=== PATIENT | female | born 1980 | race Asian ===

== ENCOUNTER 2019-06-12 22:50 | Inpatient (IN) | payer OTHER ==
[~2019-06-12] VITALS: Ht 165.1 cm; Wt 45.4 kg
[2019-06-12 23:00] VITALS: BP 130/80
--- NOTE | 2019-06-12 23:00 | NUR ---
ED Nurse Note: Pt brought in by [facility] for c/o substance abuse. Per pt, she was at a rehab facility due to hx of cocaine and heroin use for two years and she left the facility earlier today and went home. While at home, she drank an entire bottle of nyquil to feel better from symptoms of n/v, diarrhea and generalized body aches and pt mother called 911. Pt denies wanting to harm herself or others. Pt states she feels like she is withdrawling which are similar symptoms to the past time. Pt missed methadone dose this morning. Pt is aaox4, appears anxious, breathing is normal and unlabored.
[2019-06-12 23:34] LABS: BASOPHILS % (AUTO) 0.4 % (0.0-2.0); HEMATOCRIT 40.3 % (37.0-47.0); LYMPHOCYTES % (AUTO) 9.2 % (20.0-45.0); MEAN CORPUSCULAR VOLUME 85 FL (80-99); MONOCYTES % (AUTO) 7.9 % (1.0-10.0); NEUTROPHILS % (AUTO) 82.5 % (45.0-75.0); PLATELET COUNT 304 K/UL (150-450); RED BLOOD COUNT 4.76 M/UL (4.20-5.40); RED CELL DISTRIBUTION WIDTH 11.9 % (11.6-14.8); WHITE BLOOD COUNT 6.4 K/UL (4.8-10.8)
[2019-06-12 23:36] LABS: APPEARANCE,URINE CLEAR; BILIRUBIN, URINE NEGATIVE (NEGATIVE); COLOR,URINE PALE YELLOW; GLUCOSE, URINE (UA) NEGATIVE (NEGATIVE); KETONES,URINE 1+ (NEGATIVE); LEUKOCYTE ESTERASE ,URINE 1+ (NEGATIVE); NITRITE,URINE NEGATIVE (NEGATIVE); PH,URINE 5 (4.5-8.0); PROTEIN,URINE 1+ (NEGATIVE); UROBILINOGEN,URINE NORMAL MG/DL (0.0-1.0)
[2019-06-12 23:44] LABS: ANION GAP 16 mmol/L (5-15); BLOOD UREA NITROGEN 11 mg/dL (7-18); CALCIUM 9.2 MG/DL (8.5-10.1); CARBON DIOXIDE 23 MMOL/L (21-32); CHLORIDE 106 MMOL/L (98-107); CREATININE 0.7 MG/DL (0.55-1.30); POTASSIUM 3.2 MMOL/L (3.5-5.1); SODIUM 144 MMOL/L (136-145)
[2019-06-12] MEDS ORDERED: Ketorolac 30mg Inj IV ONE (23:45)
--- NOTE | 2019-06-12 23:46 | Emergency Room Report ---
History of Present Illness General Chief Complaint: Substance Abuse Source: Patient Present Illness HPI Disclaimer: Please note that this report is being documented using DRAGON technology. This can lead to erroneous entry secondary to incorrect interpretation by the dictating instrument. HPI: 39-year-old female with a history of cocaine and opiate abuse presents for evaluation of body wide pain and withdrawal symptoms. She was at a [facility] trying to get off of opiates and methadone. She was on a taper. She signed out and returned home today because she was not satisfied with the care she was getting. She was complaining of diffuse body wide pains, diarrhea, nausea and vomiting. Denies fever, chest pain, back pain. She believes she is withdrawing as she has done in the past. She drank a bottle of NyQuil to try to help her sleep. She denies it being a suicidal attempt at all but just looking for relief from pain and to help with sleep. She states that he did not drink it all at once but rather over the course of a few hours. Started drinking 6 PM and finished approximately 10 PM. She would like to return to a rehab facility. PMH: Cocaine, opiate abuse PSH: Reviewed Allergies: Iodine Social Hx: Substance abuse COVID-19 risk:Travel to affect: No Has patient experienced cota: No Allergies: Uncoded Allergies: IOODINE (Allergy, Unknown, 06/12/19) Patient History Last Menstrual Period: na Now: No Nursing Documentation-PMH Past Medical History: No History, Except For Review of Systems All Other Systems: negative except mentioned in HPI Physical Exam Vital Signs Date Time Temp Pulse Resp B/P (MAP) Pulse Ox O2 Delivery O2 Flow Rate FiO2 06/12/19 22:52 98.4 90 18 130/80 (97) 98 General: Awake and alert, no acute distress HEENT: NC/AT. EOMI. Cardiovascular: RRR. S1 and S2 normal. No murmur appreciated Resp: Normal work of breathing. No cough, wheezing or crackles appreciated Abdomen: Abdomen is soft, nondistended. Nontender Skin: Intact. No abrasions, laceration or rash over the exposed skin MSK: Normal tone and bulk. Moving all extremities. No obvious deformity. Neuro: Awake and alert. Mentating appropriately. No tremors. Procedures Critical Care Time Critical Care Time Total critical care time: Approximately 31 minutes Due to a high probability of clinically significant, life threatening deterioration, the patient required the highest level of preparedness to intervene emergently and I personally spent this critical care time directly and personally managing the patient. This critical care time included obtaining a history, examining the patient, pulse oximetry, ordering and reviewing studies , ordering treatments, evaluating response to treatment and updating management plan as needed, frequent reassessment and discussion with other providers as well as arranging for ultimate disposition. This critical to care time was performed to assess and manage the high probability of life-threatening deterioration that could result in multiorgan failure. This critical care time is separate from the separately billable procedures and treating other patients. Medical Decision Making Diagnostic Impression: Primary Impression: Withdrawal syndrome Additional Impression: Acetaminophen overdose ER Course 39-year-old female history of opiate and cocaine abuse presents for evaluation of body wide pain, vomiting and diarrhea consistent with acute opiate/methadone withdrawal. While she did drink a bottle of NyQuil she states it was to help her sleep and adamantly denies SI. She is requesting to return to a facility and symptomatic medications to help with her withdrawal symptoms. Concern for acetaminophen overdose and dextromethorphan overdose at this time is greatest given her ingestion of NyQuil although it was over a period of approximately 4 hours the last of which was approximately 1 hour prior to arrival. We will obtain EKG to assess QRS, draw labs to assess for other coingestants, electrolyte abnormalities in preparation for transfer to facility if one is willing to accept her. Will start IV fluids, loperamide, Zofran and Toradol. Laboratory Tests Test 06/12/19 23:10 06/12/19 23:15 White Blood Count 6.4 K/UL (4.8-10.8) Red Blood Count 4.76 M/UL (4.20-5.40) Hemoglobin 14.0 G/DL (12.0-16.0) Hematocrit 40.3 % (37.0-47.0) Mean Corpuscular Volume 85 FL (80-99) Mean Corpuscular Hemoglobin 29.4 PG (27.0-31.0) Mean Corpuscular Hemoglobin Concent 34.7 G/DL (32.0-36.0) Red Cell Distribution Width 11.9 % (11.6-14.8) Platelet Count 304 K/UL (150-450) Mean Platelet Volume 6.4 FL (6.5-10.1) L Neutrophils (%) (Auto) 82.5 % (45.0-75.0) H Lymphocytes (%) (Auto) 9.2 % (20.0-45.0) L Monocytes (%) (Auto) 7.9 % (1.0-10.0) Eosinophils (%) (Auto) 0.0 % (0.0-3.0) Basophils (%) (Auto) 0.4 % (0.0-2.0) Sodium Level 144 MMOL/L (136-145) Potassium Level 3.2 MMOL/L (3.5-5.1) L Chloride Level 106 MMOL/L (98-107) Carbon Dioxide Level 23 MMOL/L (21-32) Anion Gap 16 mmol/L (5-15) H Blood Urea Nitrogen 11 mg/dL (7-18) Creatinine 0.7 MG/DL (0.55-1.30) Estimate Glomerular Filtration Rate > 60 mL/min (>60) Glucose Level 89 MG/DL (74-106) Calcium Level 9.2 MG/DL (8.5-10.1) Total Bilirubin 0.3 MG/DL (0.2-1.0) Aspartate Amino Transferase (AST) 15 U/L (15-37) Alanine Aminotransferase (ALT) 15 U/L (12-78) Alkaline Phosphatase 72 U/L (46-116) Total Protein 8.0 G/DL (6.4-8.2) Albumin 4.3 G/DL (3.4-5.0) Globulin 3.7 g/dL Albumin/Globulin Ratio 1.2 (1.0-2.7) Salicylates Level 1.9 ug/mL (2.8-20) L Acetaminophen Level 131 MCG/ML (10-30) H Serum Alcohol < 3 mg/dL Urine Color Pale yellow Urine Appearance Clear Urine pH 5 (4.5-8.0) Urine Specific [place] 1.015 (1.005-1.035) Urine Protein 1+ (NEGATIVE) H Urine Glucose (UA) Negative (NEGATIVE) Urine Ketones 1+ (NEGATIVE) H Urine Blood 2+ (NEGATIVE) H Urine Nitrite Negative (NEGATIVE) Urine Bilirubin Negative (NEGATIVE) Urine Urobilinogen Normal MG/DL (0.0-1.0) Urine Leukocyte Esterase 1+ (NEGATIVE) H Urine RBC 0-2 /HPF (0 - 2) Urine WBC 0-2 /HPF (0 - 2) Urine Squamous Epithelial Cells Few /LPF (NONE/OCC) Urine Bacteria Few /HPF (NONE) Urine HCG, Qualitative Negative (NEGATIVE) Urine Opiates Screen Negative (NEGATIVE) Urine Barbiturates Screen Negative (NEGATIVE) Phencyclidine (PCP) Screen Positive (NEGATIVE) H Urine Amphetamines Screen Negative (NEGATIVE) Urine Benzodiazepines Screen Negative (NEGATIVE) Urine Cocaine Screen Negative (NEGATIVE) Urine Marijuana (THC) Screen Negative (NEGATIVE) EKG Diagnostic Results EKG Time: 00:11 Rate: bradycardiac Rhythm: NSR ST Segments: no acute changes Other Impression Sinus bradycardia, normal axis, normal intervals, QRS [address] segment changes Rhythm Strip Diag. Results Rhythm Strip Time: 00:11 EP Interpretation: yes Rate: 50s Rhythm: NSR, no PVC's, no ectopy Reevaluation Time: 00:31 Last Vital Signs Date Time Temp Pulse Resp B/P (MAP) Pulse Ox O2 Delivery O2 Flow Rate FiO2 06/12/19 22:52 98.4 90 18 130/80 (97) 98 Reevaluation Impression QRS is within normal limits. EKG otherwise unremarkable aside from sinus bradycardia. Labs show elevated acetaminophen level at 131 and she is also positive for PCP. She was ingesting the NyQuil between 6 PM and 10 PM. Labs otherwise within normal limits. Liver function studies unremarkable. Discussed with poison control. They are recommending administration of NAC. Will give initial dose in the ED. She will be admitted for further management of acute Tylenol ingestion/overdose and monitoring. She is again denying suicidality. Disposition: ADMITTED INPATIENT Condition: Serious Elpidio Antonio MD Jun 12, 2019 23:46
[2019-06-12 23:48] LABS: ALANINE AMINOTRANSFERASE 15 U/L (12-78); ALBUMIN 4.3 G/DL (3.4-5.0); ALBUMIN/GLOBULIN RATIO 1.2 (1.0-2.7); ALKALINE PHOSPHATASE 72 U/L (46-116); ASPARTATE AMINO TRANSFERASE 15 U/L (15-37); BILIRUBIN,TOTAL 0.3 MG/DL (0.2-1.0)
--- NOTE | 2019-06-13 00:15 | NUR ---
HAND-OFF: Report given to Alcira RN and pt placed in bed and on color television console monitor.
--- NOTE | 2019-06-13 00:17 | NUR ---
ED Nurse Note: Received report from AMANDA Rowland. Patient placed on home office claims examiner. No acute distress noted.
--- NOTE | 2019-06-13 00:17 | NUR ---
Note samantha in EDM - 06/13/19 at 0142 by BRANDYN TRANSFER TO FLOOR: Patient transferred to med surg as ordered, per ERMD. Report given to AMANDA Hill. Patient transported via gurney with 1 marketing technology coordinator in stable condition.
[2019-06-13] MEDS ORDERED: D5W IV ONE (01:00)
[2019-06-13] MEDS ORDERED: ACETADOTE IV ONE (01:00)
--- NOTE | 2019-06-13 01:20 | NUR ---
ED Nurse Note: Report given to AMANDA Hill.
[2019-06-13] MEDS ORDERED: Ketorolac 30mg Inj IM PRN (01:30)
--- NOTE | 2019-06-13 01:35 | NUR ---
TRANSFER TO FLOOR: Patient transferred to med surg as ordered, per ERMD. Report given to AMANDA Hill. Patient transported via gurney with 1 weatherization technician in stable condition.
--- NOTE | 2019-06-13 01:50 | NUR ---
NURSE NOTES: Pt. received from AMANDA Rowland. Pt. AAOx4, on room air, VS stable, breathing is even and unlabored, complaints of abdominal pain; will follow with interventions. Pt. complains of nausea, no vomiting at this time. IV access right AC 20g asymptomatic, intact, patent; saline locked. Pt. oriented to room, educated on safety and use of call light, belongings list checked and signed. Bed is low and locked, side rails x2 up, and call light is in reach. Will call MD for admission orders.
--- NOTE | 2019-06-13 02:05 | NUR ---
NURSE NOTES: Messaged left for Dr. Arvizu regarding admission orders, awaiting return call.
--- NOTE | 2019-06-13 03:05 | NUR ---
NURSE NOTES: Message left for Dr. Arvizu regarding admission orders, awaiting return call.
--- NOTE | 2019-06-13 03:45 | NUR ---
NURSE NOTES: Spoke with Hanna from Poison Control ( , case# [id number]). Hanna advised to continue to monitor for symptoms and to continue mucomyst series (4hr bag and 16hr bag), advised to reassess labs for tylenol level, liver enzymes, and INR one hour before the 16hr bag has finished running. Per Hanna, goal is for tylenol level <10, normal liver enzymes. Hanna advised to call regarding any other questions.
--- NOTE | 2019-06-13 03:50 | NUR ---
NURSE NOTES: Message left for Dr. Arvizu regarding admission orders and follow up from poison control. Awaiting return call.
[2019-06-13] MEDS ORDERED: xanax (03:56)
[2019-06-13] MEDS ORDERED: buspirone (03:56)
[2019-06-13] MEDS ORDERED: gabapentin (03:56)
[2019-06-13] MEDS ORDERED: methadone (03:56)
[2019-06-13] MEDS ORDERED: venlafaxine (03:56)
[2019-06-13 04:00] VITALS: BP 146/73
--- NOTE | 2019-06-13 05:00 | NUR ---
NURSE NOTES: Awaiting admission orders, charge nurse aware and nursing supervisor cigar making hand aware.
--- NOTE | 2019-06-13 05:30 | NUR ---
NURSE NOTES: Attempted to get in touch with [facility] to request medication information. Pt. able to state medication receiving while at [facility] but unable to recall dose and frequency. Unable to connect with anyone at [facility] at this time.
--- NOTE | 2019-06-13 06:23 | NUR ---
NURSE NOTES: Message left for Dr. Arvizu, awaiting return call.
--- NOTE | 2019-06-13 06:59 | NUR ---
NURSE NOTES: Spoke with Dr. Thornton regarding admission orders, Dr. Thornton said he will be up shortly to visit the patient. Will continue to monitor. Charge nurse is aware.
[2019-06-13] MEDS ORDERED: chlordiazePOXIDE 5mg Cap ORAL PRN (07:00)
[2019-06-13] MEDS ORDERED: Zolpidem 5mg tab ORAL PRN (07:00)
[2019-06-13] MEDS ORDERED: D5 1/2NS w/KCl 30mEq 1000ml 1,000 ML IV SCH (07:30)
--- NOTE | 2019-06-13 07:35 | NUR ---
NURSE NOTES: Received report from AMANDA Hill. Patient in bed sleeping. On room air, no signs of distress or labored breathing. IV intact, patent, and saline locked. Bed in lowest position with call light in reach. Will continue with plan of care.
--- NOTE | 2019-06-13 07:45 | NUR ---
NURSE NOTES: Spoke with Tommy at poison control regarding mucomyst, Tommy recommended to restart the series for the pt due to too long of a time between the initial loading dose. Will follow up with Dr. Arvizu.
--- NOTE | 2019-06-13 07:45 | NUR ---
HAND-OFF: Report given to AMANDA Yates.
--- NOTE | 2019-06-13 07:50 | NUR ---
NURSE NOTES: Dr. Arvizu called regarding consult from poison control to restart mucomyst series. Awaiting return call, endorsed to day shift nurse.
[2019-06-13 08:00] VITALS: BP 148/95
--- NOTE | 2019-06-13 08:00 | NUR ---
NURSE NOTES: Notified Dr. Arvizu of poison control recommendations. No orders given.
[2019-06-13] MEDS: Heparin 5000 units/ml inj SUBQ SCH ×2 (09:00→21:00)
[2019-06-13 09:23] LABS: BASOPHILS % (AUTO) 0.6 % (0.0-2.0); EOSINOPHILS % (AUTO) 0.1 % (0.0-3.0); HEMATOCRIT 40.6 % (37.0-47.0); HEMOGLOBIN 13.5 G/DL (12.0-16.0); LYMPHOCYTES % (AUTO) 26.2 % (20.0-45.0); MEAN CORPUSCULAR VOLUME 86 FL (80-99); MONOCYTES % (AUTO) 5.3 % (1.0-10.0); NEUTROPHILS % (AUTO) 67.8 % (45.0-75.0); PLATELET COUNT 305 K/UL (150-450); RED BLOOD COUNT 4.71 M/UL (4.20-5.40); RED CELL DISTRIBUTION WIDTH 12.1 % (11.6-14.8); WHITE BLOOD COUNT 7.1 K/UL (4.8-10.8)
[2019-06-13] MEDS ORDERED: D5 1/2NS w/KCl 20mEq 1,000 ML IV SCH (09:30)
[2019-06-13 10:00] LABS: ANION GAP 11 mmol/L (5-15); BLOOD UREA NITROGEN 7 mg/dL (7-18); CALCIUM 9.1 MG/DL (8.5-10.1); CARBON DIOXIDE 26 MMOL/L (21-32); CHLORIDE 107 MMOL/L (98-107); CREATININE 0.7 MG/DL (0.55-1.30); PHOSPHORUS 3.4 MG/DL (2.5-4.9); POTASSIUM 4.2 MMOL/L (3.5-5.1); SODIUM 144 MMOL/L (136-145)
--- NOTE | 2019-06-13 10:18 | NUR ---
COMPONENT OVERHAUL OPERATOR NOTE SW received a notification for social insurance specialist concerns. SW met w/ pt and assessed pt's needs/concerns. Pt presents as A&O4x. Pt resides w/ her mother at [address] [place] [address]. Pt is and has no children. Emergency contacts provided : Hali Santiago(sister) [phone] and Valentino Ferguson (mother) [phone]. Pt uses tobacco, no ETOH, and abuses cocaine, heroine and methadone. Pt receives methadone tx at [facility] every day. Pt's last methadone tx was 2 days ago. Per pt, her last substance abuse was two weeks ago. RUDS positive for PCP. Pt was participating IP substance abuse rehab program at [facility] in [place]. However, pt states she left the program before completing one. Pt currently considers IP vs OP substance abuse rehab program. SW provided the list of substance rehab programs in [facility]. SW highly encouraged pt to F/U w/ her current interest in rehab. Pt verbalized understanding. Pt denies SI/HI. Pt did not share any further concern/needs. SW to F/U as needed. Signed: 06/13/19 at 1025 by VANESSA HENNING <Co-Signature Required>
--- NOTE | 2019-06-13 11:42 | General Progress Note ---
Assessment/Plan Problem List: (1) Withdrawal syndrome ICD Codes: F19.239 - Other psychoactive substance dependence with withdrawal, unspecified SNOMED: [id number] Assessment/Plan: opioid dependency/WD no elevated LFTS needs pain management consult ivf repeat labs in am very anxious needs psych eval Subjective ROS Limited/Unobtainable: Yes Allergies: Uncoded Allergies: IOODINE (Allergy, Unknown, 06/12/19) Subjective HPI: 39-year-old female with a history of cocaine and opiate abuse presents for evaluation of body wide pain and withdrawal symptoms. She was at a [facility] trying to get off of opiates and methadone. She was on a taper. She signed out and returned home today because she was not satisfied with the care she was getting. She was complaining of diffuse body wide pains, diarrhea, nausea and vomiting. Denies fever, chest pain, back pain. She believes she is withdrawing as she has done in the past. She drank a bottle of NyQuil to try to help her sleep. She denies it being a suicidal attempt at all but just looking for relief from pain and to help with sleep. She states that he did not drink it all at once but rather over the course of a few hour Objective Last 24 Hour Vital Signs Date Time Temp Pulse Resp B/P (MAP) Pulse Ox O2 Delivery O2 Flow Rate FiO2 06/13/19 04:00 98.3 55 18 146/73 (97) 99 06/13/19 02:13 Room Air 06/13/19 01:35 98.3 89 18 139/95 99 Room Air 06/13/19 00:25 98.4 06/12/19 23:00 90 18 Room Air 06/12/19 23:00 98.4 90 18 130/80 98 06/12/19 22:52 98.4 90 18 130/80 (97) 98 Intake and Output 06/12/19 06/13/19 19:00 07:00 Intake Total 1000 ml Balance 1000 ml Intake Oral 0 ml IV Total 1000 ml Laboratory Tests 06/12/19 23:10: White Blood Count 6.4, Red Blood Count 4.76, Hemoglobin 14.0, Hematocrit 40.3, Mean Corpuscular Volume 85, Mean Corpuscular Hemoglobin 29.4, Mean Corpuscular Hemoglobin Concent 34.7, Red Cell Distribution Width 11.9, Platelet Count 304, Mean Platelet Volume 6.4L, Neutrophils (%) (Auto) 82.5H, Lymphocytes (%) (Auto) 9.2L, Monocytes (%) (Auto) 7.9, Eosinophils (%) (Auto) 0.0, Basophils (%) (Auto ) 0.4, Sodium Level 144, Potassium Level 3.2L, Chloride Level 106, Carbon Dioxide Level 23, Anion Gap 16H, Blood Urea Nitrogen 11, Creatinine 0.7, Estimat Glomerular Filtration Rate > 60, Glucose Level 89, Calcium Level 9.2, Total Bilirubin 0.3, Aspartate Amino Transf (AST/SGOT) 15, Alanine Aminotransferase (ALT/SGPT) 15, Alkaline Phosphatase 72, Total Protein 8.0, Albumin 4.3, Globulin 3.7, Albumin/Globulin Ratio 1.2, Salicylates Level 1.9L, Acetaminophen Level 131H, Serum Alcohol < 3 06/12/19 23:15: Urine Color Pale yellow, Urine Appearance Clear, Urine pH 5, Urine Specific [place] 1.015, Urine Protein 1+H, Urine Glucose (UA) Negative, Urine Ketones 1+H , Urine Blood 2+H, Urine Nitrite Negative, Urine Bilirubin Negative, Urine Urobilinogen Normal, Urine Leukocyte Esterase 1+H, Urine RBC 0-2, Urine WBC 0-2 , Urine Squamous Epithelial Cells Few, Urine Bacteria Few, Urine HCG, Qualitative Negative, Urine Opiates Screen Negative, Urine Barbiturates Screen Negative, Phencyclidine (PCP) Screen PositiveH, Urine Amphetamines Screen Negative, Urine Benzodiazepines Screen Negative, Urine Cocaine Screen Negative, Urine Marijuana (THC) Screen Negative 06/13/19 08:45: White Blood Count 7.1, Red Blood Count 4.71, Hemoglobin 13.5, Hematocrit 40.6, Mean Corpuscular Volume 86, Mean Corpuscular Hemoglobin 28.8, Mean Corpuscular Hemoglobin Concent 33.3, Red Cell Distribution Width 12.1, Platelet Count 305, Mean Platelet Volume 6.3L, Neutrophils (%) (Auto) 67.8, Lymphocytes (%) (Auto) 26.2, Monocytes (%) (Auto) 5.3, Eosinophils (%) (Auto) 0.1, Basophils (%) (Auto ) 0.6, Sodium Level 144, Potassium Level 4.2, Chloride Level 107, Carbon Dioxide Level 26, Anion Gap 11, Blood Urea Nitrogen 7, Creatinine 0.7, Estimat Glomerular Filtration Rate > 60, Glucose Level 103, Calcium Level 9.1, Acetaminophen Level 11, Prothrombin Time 10.7, Prothromb Time International Ratio 1.0, Phosphorus Level 3.4, Magnesium Level 2.0 Height (Feet): 5 Height (Inches): 5.00 Weight (Pounds): 100 General Appearance: alert EENT: normal ENT inspection Neck: supple Cardiovascular: normal rate Respiratory/Chest: decreased breath sounds Abdomen: normal bowel sounds, non tender, soft Extremities: non-tender Kurt Montoya MD Jun 13, 2019 11:42
[2019-06-13 12:00] VITALS: BP 127/82
[2019-06-13] MEDS ORDERED: Morphine Sulfate 4mg/ml Inj (IV USE ONLY) IVP PRN (12:30)
--- NOTE | 2019-06-13 12:53 | Consultation ---
History of Present Illness General Date patient seen: Jun 13, 2019 Chief Complaint: Present Illness Allergies: Uncoded Allergies: IOODINE (Allergy, Unknown, 06/12/19) Medication History Miscellaneous Medications [buspirone], (Reported) [gabapentin], (Reported) [methadone], (Reported) [venlafaxine], (Reported) [xanax], (Reported) Patient History Healthcare decision maker Resuscitation status Full Code Advanced Directive on File Physical Exam Last 24 Hour Vital Signs Date Time Temp Pulse Resp B/P (MAP) Pulse Ox O2 Delivery O2 Flow Rate FiO2 06/13/19 04:00 98.3 55 18 146/73 (97) 99 06/13/19 02:13 Room Air 06/13/19 01:35 98.3 89 18 139/95 99 Room Air 06/13/19 00:25 98.4 06/12/19 23:00 90 18 Room Air 06/12/19 23:00 98.4 90 18 130/80 98 06/12/19 22:52 98.4 90 18 130/80 (97) 98 Intake and Output 06/12/19 06/13/19 19:00 07:00 Intake Total 1000 ml Balance 1000 ml Intake Oral 0 ml IV Total 1000 ml Laboratory Tests Test 06/12/19 23:10 06/12/19 23:15 06/13/19 08:45 White Blood Count 6.4 K/UL (4.8-10.8) 7.1 K/UL (4.8-10.8) Red Blood Count 4.76 M/UL (4.20-5.40) 4.71 M/UL (4.20-5.40) Hemoglobin 14.0 G/DL (12.0-16.0) 13.5 G/DL (12.0-16.0) Hematocrit 40.3 % (37.0-47.0) 40.6 % (37.0-47.0) Mean Corpuscular Volume 85 FL (80-99) 86 FL (80-99) Mean Corpuscular Hemoglobin 29.4 PG (27.0-31.0) 28.8 PG (27.0-31.0) Mean Corpuscular Hemoglobin Concent 34.7 G/DL (32.0-36.0) 33.3 G/DL (32.0-36.0) Red Cell Distribution Width 11.9 % (11.6-14.8) 12.1 % (11.6-14.8) Platelet Count 304 K/UL (150-450) 305 K/UL (150-450) Mean Platelet Volume 6.4 FL (6.5-10.1) L 6.3 FL (6.5-10.1) L Neutrophils (%) (Auto) 82.5 % (45.0-75.0) H 67.8 % (45.0-75.0) Lymphocytes (%) (Auto) 9.2 % (20.0-45.0) L 26.2 % (20.0-45.0) Monocytes (%) (Auto) 7.9 % (1.0-10.0) 5.3 % (1.0-10.0) Eosinophils (%) (Auto) 0.0 % (0.0-3.0) 0.1 % (0.0-3.0) Basophils (%) (Auto) 0.4 % (0.0-2.0) 0.6 % (0.0-2.0) Sodium Level 144 MMOL/L (136-145) 144 MMOL/L (136-145) Potassium Level 3.2 MMOL/L (3.5-5.1) L 4.2 MMOL/L (3.5-5.1) Chloride Level 106 MMOL/L (98-107) 107 MMOL/L (98-107) Carbon Dioxide Level 23 MMOL/L (21-32) 26 MMOL/L (21-32) Anion Gap 16 mmol/L (5-15) H 11 mmol/L (5-15) Blood Urea Nitrogen 11 mg/dL (7-18) 7 mg/dL (7-18) Creatinine 0.7 MG/DL (0.55-1.30) 0.7 MG/DL (0.55-1.30) Estimat Glomerular Filtration Rate > 60 mL/min (>60) > 60 mL/min (>60) Glucose Level 89 MG/DL (74-106) 103 MG/DL (74-106) Calcium Level 9.2 MG/DL (8.5-10.1) 9.1 MG/DL (8.5-10.1) Total Bilirubin 0.3 MG/DL (0.2-1.0) Aspartate Amino Transf (AST/SGOT) 15 U/L (15-37) Alanine Aminotransferase (ALT/SGPT) 15 U/L (12-78) Alkaline Phosphatase 72 U/L (46-116) Total Protein 8.0 G/DL (6.4-8.2) Albumin 4.3 G/DL (3.4-5.0) Globulin 3.7 g/dL Albumin/Globulin Ratio 1.2 (1.0-2.7) Salicylates Level 1.9 ug/mL (2.8-20) L Acetaminophen Level 131 MCG/ML (10-30) H 11 MCG/ML (10-30) Serum Alcohol < 3 mg/dL Urine Color Pale yellow Urine Appearance Clear Urine pH 5 (4.5-8.0) Urine Specific [place] 1.015 (1.005-1.035) Urine Protein 1+ (NEGATIVE) H Urine Glucose (UA) Negative (NEGATIVE) Urine Ketones 1+ (NEGATIVE) H Urine Blood 2+ (NEGATIVE) H Urine Nitrite Negative (NEGATIVE) Urine Bilirubin Negative (NEGATIVE) Urine Urobilinogen Normal MG/DL (0.0-1.0) Urine Leukocyte Esterase 1+ (NEGATIVE) H Urine RBC 0-2 /HPF (0 - 2) Urine WBC 0-2 /HPF (0 - 2) Urine Squamous Epithelial Cells Few /LPF (NONE/OCC) Urine Bacteria Few /HPF (NONE) Urine HCG, Qualitative Negative (NEGATIVE) Urine Opiates Screen Negative (NEGATIVE) Urine Barbiturates Screen Negative (NEGATIVE) Phencyclidine (PCP) Screen Positive (NEGATIVE) H Urine Amphetamines Screen Negative (NEGATIVE) Urine Benzodiazepines Screen Negative (NEGATIVE) Urine Cocaine Screen Negative (NEGATIVE) Urine Marijuana (THC) Screen Negative (NEGATIVE) Prothrombin Time 10.7 SEC (9.30-11.50) Prothromb Time International Ratio 1.0 (0.9-1.1) Phosphorus Level 3.4 MG/DL (2.5-4.9) Magnesium Level 2.0 MG/DL (1.8-2.4) Height (Feet): 5 Height (Inches): 5.00 Weight (Pounds): 100 Medications Current Medications Medications (Trade) Dose Ordered Sig/David Route PRN Reason Start Time Stop Time Status Last Admin Dose Admin Bisacodyl (Dulcolax) 10 mg DAILYPRN PRN RECTAL Constipation 06/13/19 07:15 07/13/19 07:14 Chlordiazepoxide (Librium) 25 mg Q6H PRN ORAL withdrawl 06/13/19 07:00 06/20/19 06:59 Dextrose/ Electrolytes 1,000 ml @ 50 mls/hr Q20H IV 06/13/19 14:00 07/13/19 13:59 Heparin Sodium (Porcine) (Heparin 5000 units/ml) 5,000 units EVERY 12 HOURS SUBQ 06/13/19 09:00 07/28/19 08:59 Ketorolac Tromethamine (Toradol 30mg) 30 mg Q6H PRN IM pain 06/13/19 01:30 06/18/19 01:29 06/13/19 06:49 Loperamide HCl (Imodium) 4 mg Q6HR PRN ORAL Diarrhea 06/13/19 01:00 07/13/19 00:59 Methadone HCl (Methadone HCl) 20 mg Q4H PRN ORAL For Pain 06/13/19 15:15 06/20/19 07:14 UNV Morphine Sulfate (Morphine Sulfate) 4 mg Q4H PRN IVP For Pain 06/13/19 12:30 06/20/19 12:29 UNV Ondansetron HCl (Zofran) 4 mg Q6H PRN IVP Nausea & Vomiting 06/13/19 07:00 07/13/19 06:59 Polyethylene Glycol (Miralax) 17 gm BEDTIME ORAL 06/13/19 21:00 07/13/19 20:59 Zolpidem Tartrate (Ambien) 5 mg HSPRN PRN ORAL Insomnia 06/13/19 07:00 06/20/19 06:59 Assessment/Plan Assessment/Plan: (1) Polysubstance abuse (2) Muscle spasm seen dictated Damon Jarvis Jun 13, 2019 12:53
[2019-06-13] MEDS: Methocarbamol 500mg tab ORAL PRN (15:10)
[2019-06-13] MEDS: chlordiazePOXIDE 25mg Cap ORAL PRN ×2 (15:11→21:15)
[2019-06-13] MEDS: D5 1/2NS w/KCl 20mEq 1,000 ML IV SCH (15:19)
--- NOTE | 2019-06-13 15:51 | History & Physical ---
History and Physical History & Physicial Ish Arvizu MD Jun 13, 2019 15:51
[2019-06-13 16:00] VITALS: BP 132/82
--- NOTE | 2019-06-13 16:46 | NUR ---
USED CAR LOT PORTERB[employer]Y GROWER 39 YO FEMALE HIMANSHU FROM [facility] IN [place] TO ER CC WITHDRAWAL MISSED METHADONE DOSE, CONSUMED ONE BOTTLE OF NIQUIL SI: TYLENOL OVERDOSE T. 98.4 HR 90 RR 18 B/P 130/80 K 3.2 AGAP 16 TYLENOL 131 URINE TOX+SALICYLATES,PHENCYCLIDINE IS: IMODIUM IVF NS BOLUS ZOFRAN IV TORADOL IM ADMITTED TO MED/SURG MED/SURG STATUS DCP RETURN HOME
[2019-06-13] MEDS: Sucralfate 1gm tab ORAL SCH ×2 (18:19→21:15)
--- NOTE | 2019-06-13 18:30 | History and Physical Report ---
DATE OF ADMISSION: 06/13/2019 CHIEF COMPLAINT: Abdominal pain, nausea, and vomiting. HISTORY OF PRESENT ILLNESS: This is a 39-year-old female with past medical history significant for polysubstance abuse including cocaine, heroin, and opioids, who presented to the emergency department complaining about abdominal pain associated with nausea. She was recently discharged from [facility] yesterday. She got off the opioids and methadone and she was tapered. She signed out and returned home and upon arrival at home, the patient started drinking a bottle of NyQuil to make her and help her with sleep; however, it was not successful. Complaining about diffuse abdominal pain, diarrhea, nausea, and vomiting. Shortly after initial evaluation in the emergency department, the patient was noted to have Tylenol level of 131, and subsequently the patient was admitted to the hospital with acetaminophen toxicity as well as opiate withdrawal. PAST MEDICAL HISTORY/PAST SURGICAL HISTORY: As above. History of opiate dependency, history of fibromyalgia, diverticulosis, rheumatoid arthritis, and appendectomy. MEDICATIONS: Medications at home, please refer to medication reconciliation. ALLERGIES: Allergy to iodine. SOCIAL HISTORY: The patient quit substance abuse. She denies any IV drug abuse; however, she has been using cocaine, heroin, and amphetamine. The patient currently smokes 1 pack of cigarettes a day. FAMILY HISTORY: Noncontributory. REVIEW OF SYSTEMS: Mostly as above. Denies any dysuria, frequency, or hematuria. Complained of back pain, nausea, and vomiting. Denies any hemoptysis or hematochezia. Denies any bright red blood per rectum. PHYSICAL EXAMINATION: VITAL SIGNS: On admission from the emergency department, temperature 98.4, pulse of 90, respirations 18, and blood pressure 130/80. GENERAL: The patient is awake, responsive, and in no acute distress. HEAD AND NECK: Pupils are equal and reactive to light. Extraocular movements intact. NECK: Supple. No JVD. LUNGS: Good air entry. No wheezing or rales. HEART: S1, S2. Regular rhythm. No murmur or gallops. ABDOMEN: Soft, nondistended. Tender on deep palpation. Diffuse abdominal tenderness. No rebound tenderness. No fluid shift. EXTREMITIES: No cyanosis, clubbing, or edema. NEUROLOGIC: Cranial nerves II through XII grossly intact. Motor is 5/5 in all extremities. Gait was not assessed due to the patient's status. RECTAL: Refused and deferred. GENITOURINARY: Refused and deferred. PSYCHIATRIC: Mood and affect is anxious. LABORATORY DATA: On admission, salicylate level is 1.9, acetaminophen level initial one 131 and repeat one was 11, and alcohol level less than 3. Urine drug screen positive for phencyclidine. WBC of 6.4, hemoglobin 14, hematocrit 40, and platelet is 304,000. Sodium 144, potassium 3.2, chloride 106, bicarb 23, BUN 11, creatinine 0.7. Liver function, total bilirubin of 0.3, AST of 15, ALT of 15, and alkaline phosphatase 75. PT of 10 and INR 1.0. Urinalysis, +1 ketone, +2 occult blood, and positive protein. ASSESSMENT: 1. Polysubstance abuse, status post withdrawal. 2. Acetaminophen overdose. 3. Fibromyalgia. 4. Diverticulosis. 5. Rheumatoid arthritis. PLAN: Admit the patient to medical floor. We will start the patient on Mucomyst titer as per protocol. Follow up laboratory in the morning. Follow up the acetaminophen level. IV hydration. Pain medication. Follow up with Dr. Montoya, Gastroenterology consultation. Ish Arvizu M.D. DR: Howard JOB#: [id number] CC:
--- NOTE | 2019-06-13 19:15 | Consultation ---
DATE OF CONSULTATION: 06/13/2019 PAIN MANAGEMENT CONSULTATION CONSULTING PHYSICIAN: Kristie Carranza M.D. REFERRING PHYSICIAN: Davida Jones M.D. PHYSICIAN CREDENTIALS SPECIALIST: Humphrey Crowell CHIEF COMPLAINT: Substance abuse. HISTORY OF PRESENT ILLNESS: This is a 39-year-old female who is being seen on telemetry floor of [facility] for initial pain management consultation. The patient was admitted under the care of Dr. Arvizu and reports that she had been having taking methadone 20 mg daily in [facility] and left about a day ago where she had been off the methadone. she was taking methadone 100 mg daily for history of heroin abuse and cocaine abuse. At this time, was started on methadone 10 mg tablet with minimal relief. She states she takes 20 and due to this, we were consulted so that the patient would have adequate methadone while here in the hospital. PAST MEDICAL HISTORY: FMS, rheumatoid arthritis, and diverticulosis. PAST SURGICAL HISTORY: Appendectomy. SOCIAL HISTORY: Smoking tobacco, marijuana. Denies alcohol abuse. Has history of cocaine and heroin abuse. ALLERGIES: Iodine. MEDICATIONS: BuSpar, Neurontin, Effexor, Chantix. REVIEW OF SYSTEMS: Denies rash, fever, chills, sweating, dizziness, drowsiness, blurred vision, sore throat, or change in weight. No shortness of breath or chest pain. No nausea, vomiting, diarrhea, or blood in the stool or urine. She is complaining of withdrawal of methadone usage. PHYSICAL EXAMINATION: GENERAL: Alert, awake, and oriented. VITAL SIGNS: Blood pressure 146/73, heart rate 55, oxygen saturation 99%, respirations 18, temperature 98.2 degrees Fahrenheit. HEENT: PERRLA. NECK: Range of motion is full in all directions. No tenderness to paracervical muscles. No adenopathy. LUNGS: Decreased breath sounds bilaterally. HEART: S1 and S2 regular. ABDOMEN: Benign. BACK: Range of motion is full on flexion, extension. EXTREMITIES: Upper extremity range of motion is full. No cyanosis. No clubbing. No edema. Sensory is intact. Reflexes are not obtainable. No adenopathy. ASSESSMENT AND PLAN: This is a 39-year-old female with polysubstance abuse, muscle spasm. The patient will be increased to methadone 20 mg daily. She will be started on Neurontin 300 mg three times a day, Robaxin 500 mg tablet every 8 hours as needed for muscle spasms. The patient was discussed with Dr. Carranza and he concurred. We will follow the patient. Thank you very much for the courtesy of this consultation. Kristie Carranza M.D. HAO Crowell DR: JUS JOB#: [id number] CC:
--- NOTE | 2019-06-13 19:33 | NUR ---
NURSE NOTES: Pt. received from AMANDA Yates. Pt. AAOx4, on room air, breathing is even and unlabored, pt. requests pain medication and will follow with interventions. IV right AC 20g asymptomatic, intact, and patent; running D5 1/2NS 20 meq KCL at 50cc. Bed is low and locked, side rails x2 up, and call light is in reach. Will continue to monitor.
[2019-06-13 20:00] VITALS: BP 113/74
--- NOTE | 2019-06-13 20:45 | Consultation ---
DATE OF CONSULTATION: 06/13/2019 NOTE: INCOMPLETE DICTATION PAIN MANAGEMENT CONSULTATION CONSULTING PHYSICIAN: Kristie Carranza M.D. REFERRING PHYSICIAN: Davida Jones M.D. PHYSICIAN HISTOTECHNOLOGIST: Humphrey Crowell CHIEF COMPLAINT: History of heroin abuse. HISTORY OF PRESENT ILLNESS: This is a 39-year-old female, who is being seen on the Med/Surg floor of [facility] for initial pain management consultation. The patient has been admitted under the care of Dr. Arvizu due to substance abuse and reports that she has been having increased pain after leaving [facility] where she was not happy with the care. She had been there for two weeks on 25 mg of methadone. Prior to that, she was with [facility] where she was getting 100 mg daily due to heroin abuse and cocaine abuse in the past. Kristie Carranza M.D. HAO Crowell DR: DANISHA JOB#: [id number] CC:
[2019-06-13] MEDS: Miralax 17gm pkt ORAL SCH (21:15)
--- NOTE | 2019-06-13 23:45 | NUR ---
NURSE NOTES: Spoke with Kingsley from [facility] Control, following up on pt.'s treatment. Requested update on pt.'s status and advised repeat labs. Pt. stable, VS stable, will continue to monitor.
[2019-06-14] VITALS: BP 120/82
[2019-06-14 00:44] LABS: ALANINE AMINOTRANSFERASE 17 U/L (12-78); ALKALINE PHOSPHATASE 60 U/L (46-116); ASPARTATE AMINO TRANSFERASE 23 U/L (15-37); BILIRUBIN,DIRECT 0.4 MG/DL (0.0-0.3); BILIRUBIN,TOTAL 0.5 MG/DL (0.2-1.0)
[2019-06-14] MEDS: Methocarbamol 500mg tab ORAL PRN ×3 (00:56→22:28)
--- NOTE | 2019-06-14 01:00 | NUR ---
NURSE NOTES: Followed up with Srikanth at [facility] regarding lab results. After reporting acetaminophen levels, Srikanth advised to start the patient on oral mucomyst loading dose (140mg/kg) and to reassess acetaminophen and hepatic function labs 2-3 hours after administration. Srikanth advised for a goal of negative acetaminophen levels and normal hepatic function levels; if acetaminophen levels still positive, Srikanth advised to continue on maintenance dose (70mg/kg) every 4 hours until goal labs achieved. Poison control [phone], case # [id number]. Pt. VS stable, will continue to monitor.
--- NOTE | 2019-06-14 01:15 | NUR ---
NURSE NOTES: Called Dr. Arvizu regarding follow up with Po[facility] Control, awaiting return call.
--- NOTE | 2019-06-14 01:27 | NUR ---
NURSE NOTES: Call received from Dr. Arvizu, orders given to start pt. on oral mucomyst.
[2019-06-14] MEDS ORDERED: ACETYLCYSTEINE 20% ORAL ONE (01:30)
--- NOTE | 2019-06-14 02:45 | Consultation ---
DATE OF CONSULTATION: 06/14/2019 CONSULTING PHYSICIAN: Ursula Romeo M.D. HISTORY OF PRESENT ILLNESS: The is a 39-year-old female with a past history of polysubstance abuse, cocaine and heroin abuse, depression, and anxiety who was admitted to the hospital due to abdominal pain. The patient is presenting with depressed mood, withdrawn. The patient denies any suicidal or homicidal ideation. She stated that she took NyQuil to sleep well. The patient PAST PSYCHIATRIC HISTORY: Depression and anxiety. She has had overdose in the past, borderline personality trait or disorder. PAST MEDICAL HISTORY: Significant for fibromyalgia, diverticulosis, rheumatoid arthritis, and appendectomy. ALLERGIES: Iodine. SUBSTANCE ABUSE HISTORY: Significant for cocaine, opiates, alcohol, and amphetamine. MENTAL STATUS EXAMINATION: Alert and oriented times self, place, situation, and date. Mood is depressed. Affect is constricted, congruent with mood. Thought process is concrete. Thought content, no suicidal or homicidal ideation. Cognition is impaired. Insight and judgment is impaired. ASSESSMENT: AXIS I: Polysubstance dependence. Major depressive disorder. AXIS II: def AXIS III: As above. AXIS IV: None. AXIS V: 50. PLAN: 1. Start the patient on Effexor 150 in the morning. 2. The patient requested Xanax; however, I do not recommend starting the Xanax. 3. Provide the patient with reality orientation. Ursula Romeo M.D. DR: GIGI JOB#: [id number] CC: IKE
[2019-06-14 04:00] VITALS: BP 137/57
--- NOTE | 2019-06-14 07:15 | NUR ---
NURSE NOTES: Received report from AMANDA Hill. Patient A&O4. On room air, IV intact, patent, and running IV fluids. Bed in lowest position with call light in reach. Will continue with plan of care.
--- NOTE | 2019-06-14 07:21 | NUR ---
HAND-OFF: Report given to AMANDA Yates.
[2019-06-14 08:00] VITALS: BP 121/87
[2019-06-14] MEDS: Sucralfate 1gm tab ORAL SCH ×4 (08:55→20:16)
[2019-06-14] MEDS: Venlafaxine XR 150mg cap ORAL SCH (08:55)
[2019-06-14] MEDS: Heparin 5000 units/ml inj SUBQ SCH ×2 (08:58→20:16)
[2019-06-14 09:22] LABS: BASOPHILS % (AUTO) 0.7 % (0.0-2.0); EOSINOPHILS % (AUTO) 1.2 % (0.0-3.0); HEMATOCRIT 42.8 % (37.0-47.0); HEMOGLOBIN 14.1 G/DL (12.0-16.0); LYMPHOCYTES % (AUTO) 36.3 % (20.0-45.0); MEAN CORPUSCULAR VOLUME 87 FL (80-99); MONOCYTES % (AUTO) 4.9 % (1.0-10.0); NEUTROPHILS % (AUTO) 56.9 % (45.0-75.0); PLATELET COUNT 277 K/UL (150-450); RED BLOOD COUNT 4.93 M/UL (4.20-5.40); WHITE BLOOD COUNT 5.6 K/UL (4.8-10.8)
[2019-06-14 09:35] LABS: ALANINE AMINOTRANSFERASE 20 U/L (12-78); ALBUMIN 3.8 G/DL (3.4-5.0); ALKALINE PHOSPHATASE 64 U/L (46-116); ASPARTATE AMINO TRANSFERASE 15 U/L (15-37); BILIRUBIN,TOTAL 0.5 MG/DL (0.2-1.0)
[2019-06-14 09:37] LABS: ALANINE AMINOTRANSFERASE 15 U/L (12-78); ALBUMIN 3.7 G/DL (3.4-5.0); ALKALINE PHOSPHATASE 60 U/L (46-116); ANION GAP 8 mmol/L (5-15); ASPARTATE AMINO TRANSFERASE 16 U/L (15-37); BILIRUBIN,TOTAL 0.5 MG/DL (0.2-1.0); BLOOD UREA NITROGEN 8 mg/dL (7-18); CALCIUM 9.4 MG/DL (8.5-10.1); CARBON DIOXIDE 31 MMOL/L (21-32); CHLORIDE 108 MMOL/L (98-107); CREATININE 0.7 MG/DL (0.55-1.30); PHOSPHORUS 2.6 MG/DL (2.5-4.9); POTASSIUM 4.7 MMOL/L (3.5-5.1); SODIUM 147 MMOL/L (136-145)
[2019-06-14 09:39] LABS: BILIRUBIN,DIRECT < 0.1 MG/DL (0.0-0.3)
[2019-06-14 12:00] VITALS: BP 120/93
[2019-06-14] MEDS: D5 1/2NS w/KCl 20mEq 1,000 ML IV SCH (12:05)
[2019-06-14 16:00] VITALS: BP 119/81
--- NOTE | 2019-06-14 17:29 | Internal Med Progress Note ---
Subjective Date of Service: Jun 14, 2019 Physician Name VazquezObey Attending Physician Ish Arvizu MD Current Medications Medications (Trade) Dose Ordered Sig/David Route PRN Reason Start Time Stop Time Status Last Admin Dose Admin Bisacodyl (Dulcolax) 10 mg DAILYPRN PRN RECTAL Constipation 06/13/19 07:15 07/13/19 07:14 Chlordiazepoxide (Librium) 25 mg Q6H PRN ORAL withdrawl 06/13/19 13:15 06/20/19 06:59 06/13/19 21:15 Dextrose/ Electrolytes 1,000 ml @ 50 mls/hr Q20H IV 06/13/19 14:00 07/13/19 13:59 06/14/19 12:05 Gabapentin (Neurontin) 300 mg THREE TIMES A DAY ORAL 06/13/19 13:00 07/13/19 12:59 06/14/19 13:07 Heparin Sodium (Porcine) (Heparin 5000 units/ml) 5,000 units EVERY 12 HOURS SUBQ 06/13/19 09:00 07/28/19 08:59 Loperamide HCl (Imodium) 4 mg Q6HR PRN ORAL Diarrhea 06/13/19 01:00 07/13/19 00:59 Methadone HCl (Methadone HCl) 20 mg DAILY ORAL 06/14/19 09:00 06/21/19 08:59 06/14/19 08:56 Methocarbamol (Robaxin) 500 mg Q8H PRN ORAL muscle spasm 06/13/19 13:00 07/13/19 12:59 06/14/19 13:19 Mirtazapine (Remeron) 7.5 mg BEDTIME ORAL 06/13/19 21:00 07/13/19 20:59 06/13/19 21:14 Ondansetron HCl (Zofran) 4 mg Q6H PRN IVP Nausea & Vomiting 06/13/19 07:00 07/13/19 06:59 06/14/19 10:40 Polyethylene Glycol (Miralax) 17 gm BEDTIME ORAL 06/13/19 21:00 07/13/19 20:59 06/13/19 21:15 Sucralfate (Carafate) 1 gm FOUR TIMES A DAY ORAL 06/13/19 18:00 07/13/19 17:59 06/14/19 13:07 Venlafaxine HCl (Effexor-XR) 150 mg DAILY ORAL 06/14/19 09:00 07/14/19 08:59 06/14/19 08:55 Allergies: Uncoded Allergies: IOODINE (Allergy, Unknown, 06/12/19) ROS Limited/Unobtainable: No Constitutional: Reports: no symptoms HEENT: Reports: no symptoms Cardiovascular: Reports: no symptoms Respiratory: Reports: no symptoms Gastrointestinal/Abdominal: Reports: no symptoms Genitourinary: Reports: no symptoms Neurologic/Psychiatric: Reports: no symptoms Subjective 39 YO F admitted with acetaminophen overdose. Cover for Int med-DR Arvizu Objective Last Vital Signs Date Time Temp Pulse Resp B/P (MAP) Pulse Ox O2 Delivery O2 Flow Rate FiO2 06/14/19 12:00 98.9 47 19 120/93 (102) 100 06/14/19 09:00 Room Air Laboratory Tests Test 06/14/19 00:10 06/14/19 08:40 Total Bilirubin 0.5 MG/DL (0.2-1.0) 0.5 MG/DL (0.2-1.0) Direct Bilirubin 0.4 MG/DL (0.0-0.3) H < 0.1 MG/DL (0.0-0.3) Aspartate Amino Transf (AST/SGOT) 23 U/L (15-37) 15 U/L (15-37) Alanine Aminotransferase (ALT/SGPT) 17 U/L (12-78) 20 U/L (12-78) Alkaline Phosphatase 60 U/L (46-116) 64 U/L (46-116) Total Protein 7.4 G/DL (6.4-8.2) 7.2 G/DL (6.4-8.2) Albumin 4.0 G/DL (3.4-5.0) 3.8 G/DL (3.4-5.0) Acetaminophen Level 14 MCG/ML (10-30) < 2 MCG/ML (10-30) L White Blood Count 5.6 K/UL (4.8-10.8) Red Blood Count 4.93 M/UL (4.20-5.40) Hemoglobin 14.1 G/DL (12.0-16.0) Hematocrit 42.8 % (37.0-47.0) Mean Corpuscular Volume 87 FL (80-99) Mean Corpuscular Hemoglobin 28.5 PG (27.0-31.0) Mean Corpuscular Hemoglobin Concent 32.9 G/DL (32.0-36.0) Red Cell Distribution Width 12.0 % (11.6-14.8) Platelet Count 277 K/UL (150-450) Mean Platelet Volume 6.4 FL (6.5-10.1) L Neutrophils (%) (Auto) 56.9 % (45.0-75.0) Lymphocytes (%) (Auto) 36.3 % (20.0-45.0) Monocytes (%) (Auto) 4.9 % (1.0-10.0) Eosinophils (%) (Auto) 1.2 % (0.0-3.0) Basophils (%) (Auto) 0.7 % (0.0-2.0) Sodium Level 147 MMOL/L (136-145) H Potassium Level 4.7 MMOL/L (3.5-5.1) Chloride Level 108 MMOL/L (98-107) H Carbon Dioxide Level 31 MMOL/L (21-32) Anion Gap 8 mmol/L (5-15) Blood Urea Nitrogen 8 mg/dL (7-18) Creatinine 0.7 MG/DL (0.55-1.30) Estimat Glomerular Filtration Rate > 60 mL/min (>60) Glucose Level 103 MG/DL (74-106) Calcium Level 9.4 MG/DL (8.5-10.1) Phosphorus Level 2.6 MG/DL (2.5-4.9) Magnesium Level 1.8 MG/DL (1.8-2.4) Globulin 3.6 g/dL Albumin/Globulin Ratio 1.0 (1.0-2.7) Intake and Output 06/13/19 06/14/19 19:00 07:00 Intake Total 850 ml 500 ml Balance 850 ml 500 ml IV Total 50 ml 500 ml Other 800 ml Objective PHYSICAL EXAMINATION: GENERAL: The patient is awake, responsive, and in no acute distress. HEAD AND NECK: Pupils are equal and reactive to light. Extraocular movements intact. NECK: Supple. No JVD. LUNGS: Good air entry. No wheezing or rales. HEART: S1, S2. Regular rhythm. No murmur or gallops. ABDOMEN: Soft, nondistended. Tender on deep palpation. Diffuse abdominal tenderness. No rebound tenderness. No fluid shift. EXTREMITIES: No cyanosis, clubbing, or edema. NEUROLOGIC: Cranial nerves II through XII grossly intact. Motor is 5/5 in all extremities. Gait was not assessed due to the patient's status. RECTAL: Refused and deferred. GENITOURINARY: Refused and deferred. PSYCHIATRIC: Mood and affect is anxious. Assessment/Plan Assessment/Plan ASSESSMENT: 1. Polysubstance abuse, status post withdrawal. 2. Acetaminophen overdose. 3. Fibromyalgia. 4. Diverticulosis. 5. Rheumatoid arthritis. PLAN: 1. Admit the patient to medical floor. 2. Mucomyst titer as per protocol. 3. Dr. Montoya=Gastroenterology consultation. 4. Pain management=Obey Anglin MD Jun 14, 2019 17:29
--- NOTE | 2019-06-14 18:38 | General Progress Note ---
Assessment/Plan Assessment/Plan: Assessment - drug dependence - Tylenol OD Recommendations - pain control / drug rehab - D/C planning Subjective Allergies: Uncoded Allergies: IOODINE (Allergy, Unknown, 06/12/19) Subjective Feels OK no new symptoms Mucomyst protocol finished Tylenol level undetectable Objective Last 24 Hour Vital Signs Date Time Temp Pulse Resp B/P (MAP) Pulse Ox O2 Delivery O2 Flow Rate FiO2 06/14/19 16:00 97.9 64 18 119/81 (94) 100 06/14/19 12:00 98.9 47 19 120/93 (102) 100 06/14/19 09:00 Room Air 06/14/19 08:00 98.6 68 20 121/87 (98) 100 06/14/19 04:00 97.8 46 18 137/57 (83) 99 06/14/19 00:00 97.8 57 19 120/82 (95) 98 06/13/19 21:00 Room Air 06/13/19 20:00 98.2 50 19 113/74 (87) 97 Intake and Output 06/13/19 06/14/19 19:00 07:00 Intake Total 850 ml 500 ml Balance 850 ml 500 ml IV Total 50 ml 500 ml Other 800 ml Laboratory Tests 06/14/19 00:10: Total Bilirubin 0.5, Direct Bilirubin 0.4H, Aspartate Amino Transf (AST/SGOT) 23 , Alanine Aminotransferase (ALT/SGPT) 17, Alkaline Phosphatase 60, Total Protein 7.4, Albumin 4.0, Acetaminophen Level 14 06/14/19 08:40: Total Bilirubin 0.5, Direct Bilirubin < 0.1, Aspartate Amino Transf (AST/SGOT) 15, Alanine Aminotransferase (ALT/SGPT) 20, Alkaline Phosphatase 64, Total Protein 7.2, Albumin 3.8, Acetaminophen Level < 2L, White Blood Count 5.6, Red Blood Count 4.93, Hemoglobin 14.1, Hematocrit 42.8, Mean Corpuscular Volume 87, Mean Corpuscular Hemoglobin 28.5, Mean Corpuscular Hemoglobin Concent 32.9, Red Cell Distribution Width 12.0, Platelet Count 277, Mean Platelet Volume 6.4L, Neutrophils (%) (Auto) 56.9, Lymphocytes (%) (Auto) 36.3, Monocytes (%) (Auto) 4.9, Eosinophils (%) (Auto) 1.2, Basophils (%) (Auto) 0.7, Sodium Level 147H, Potassium Level 4.7, Chloride Level 108H, Carbon Dioxide Level 31, Anion Gap 8, Blood Urea Nitrogen 8, Creatinine 0.7, Estimat Glomerular Filtration Rate > 60, Glucose Level 103, Calcium Level 9.4, Phosphorus Level 2.6, Magnesium Level 1.8 , Globulin 3.6, Albumin/Globulin Ratio 1.0 Height (Feet): 5 Height (Inches): 5.00 Weight (Pounds): 100 Objective WDWN NCAT supple CTA RR Abd soft no edema Mary Hsieh MD Jun 14, 2019 18:38
--- NOTE | 2019-06-14 19:34 | NUR ---
NURSE NOTES: Pt. received from AMANDA Yates. Pt. AAOx4, on room air, breathing even and unlabored, no complaints of pain at this time. IV right hand 22g, asymptomatic, intact and patent; running D5 1/2NS 20meq at 50cc/hr. Bed is low and locked, side rails x2 up, and call light is in reach. Will continue to monitor.
--- NOTE | 2019-06-14 19:35 | NUR ---
HAND-OFF: Report given to AMANDA Hill.
[2019-06-14 20:00] VITALS: BP 113/80
[2019-06-14] MEDS: chlordiazePOXIDE 25mg Cap ORAL PRN (20:16)
[2019-06-14] MEDS: Miralax 17gm pkt ORAL SCH (20:16)
[2019-06-15] VITALS: BP 110/72
[2019-06-15] MEDS: chlordiazePOXIDE 25mg Cap ORAL PRN (03:53)
[2019-06-15 04:00] VITALS: BP 120/74
[2019-06-15] MEDS: D5 1/2NS w/KCl 20mEq 1,000 ML IV SCH (05:22)
--- NOTE | 2019-06-15 07:20 | NUR ---
NURSE NOTES: Received report from AMANDA Hill. Patient in bed. On room air, no signs of distress or labored breathing. IV intact, patent, and infusing IV fluids. Bed in lowest position with call light in reach. Side rails up x3. Will continue with plan of care.
--- NOTE | 2019-06-15 07:22 | NUR ---
HAND-OFF: Report given to AMANDA Yates.
[2019-06-15 07:54] LABS: BASOPHILS % (AUTO) 1.1 % (0.0-2.0); EOSINOPHILS % (AUTO) 3.3 % (0.0-3.0); HEMATOCRIT 38.1 % (37.0-47.0); HEMOGLOBIN 12.8 G/DL (12.0-16.0); LYMPHOCYTES % (AUTO) 41.4 % (20.0-45.0); MEAN CORPUSCULAR VOLUME 86 FL (80-99); MONOCYTES % (AUTO) 6.9 % (1.0-10.0); NEUTROPHILS % (AUTO) 47.3 % (45.0-75.0); PLATELET COUNT 252 K/UL (150-450); RED BLOOD COUNT 4.41 M/UL (4.20-5.40); RED CELL DISTRIBUTION WIDTH 12.1 % (11.6-14.8); WHITE BLOOD COUNT 5.1 K/UL (4.8-10.8)
[2019-06-15 08:00] VITALS: BP 122/65
[2019-06-15 08:25] LABS: ALANINE AMINOTRANSFERASE 12 U/L (12-78); ALBUMIN 3.2 G/DL (3.4-5.0); ALBUMIN/GLOBULIN RATIO 1.1 (1.0-2.7); ALKALINE PHOSPHATASE 53 U/L (46-116); ANION GAP 5 mmol/L (5-15); ASPARTATE AMINO TRANSFERASE 13 U/L (15-37); BILIRUBIN,TOTAL 0.3 MG/DL (0.2-1.0); BLOOD UREA NITROGEN 11 mg/dL (7-18); CARBON DIOXIDE 31 MMOL/L (21-32); CHLORIDE 110 MMOL/L (98-107); CREATININE 0.6 MG/DL (0.55-1.30); POTASSIUM 4.2 MMOL/L (3.5-5.1); SODIUM 145 MMOL/L (136-145)
[2019-06-15] MEDS: Venlafaxine XR 150mg cap ORAL SCH (08:27)
[2019-06-15] MEDS: Sucralfate 1gm tab ORAL SCH ×3 (08:27→17:50)
[2019-06-15] MEDS: Heparin 5000 units/ml inj SUBQ SCH (08:28)
[2019-06-15 12:00] VITALS: BP 127/70
--- NOTE | 2019-06-15 13:26 | General Progress Note ---
Assessment/Plan Assessment/Plan: (1) Polysubstance abuse (2) Muscle spasm Patient will be continued on Methadone, Neurontin and Robaxin. An RX was written in anticipation for discharge. D/w Dr. Carranza and he seems to understands. Subjective Date patient seen: Jun 15, 2019 Time patient seen: 01:10 - pm Allergies: Uncoded Allergies: IOODINE (Allergy, Unknown, 06/12/19) Subjective REVIEW OF SYSTEMS: Denies rash, fever, chills, sweating, dizziness, drowsiness, blurred vision, sore throat, or change in weight. No shortness of breath or chest pain. No nausea, vomiting, diarrhea, or blood in the stool or urine. SUBJECTIVE: Patient is stable on the Methadone. She is looking forward to being discharged home and would like to taper off the Methadone at home. If unable to was advised to enter into detox she seems to understand. Objective Last 24 Hour Vital Signs Date Time Temp Pulse Resp B/P (MAP) Pulse Ox O2 Delivery O2 Flow Rate FiO2 06/15/19 12:00 97.9 55 20 127/70 (89) 100 06/15/19 09:00 Room Air 06/15/19 08:00 98.2 72 18 122/65 (84) 100 06/15/19 04:00 96.9 70 18 120/74 (89) 95 06/15/19 00:00 98.3 63 18 110/72 (85) 97 06/14/19 21:00 Room Air 06/14/19 20:00 98.7 67 18 113/80 (91) 99 06/14/19 16:00 97.9 64 18 119/81 (94) 100 Intake and Output 06/14/19 06/15/19 19:00 07:00 Intake Total 50 ml 2350 ml Balance 50 ml 2350 ml IV Total 50 ml 550 ml Other 1800 ml # Voids 3 Laboratory Tests 06/15/19 07:10: White Blood Count 5.1, Red Blood Count 4.41, Hemoglobin 12.8, Hematocrit 38.1, Mean Corpuscular Volume 86, Mean Corpuscular Hemoglobin 29.0, Mean Corpuscular Hemoglobin Concent 33.6, Red Cell Distribution Width 12.1, Platelet Count 252, Mean Platelet Volume 7.1, Neutrophils (%) (Auto) 47.3, Lymphocytes (%) (Auto) 41.4, Monocytes (%) (Auto) 6.9, Eosinophils (%) (Auto) 3.3H, Basophils (%) (Auto ) 1.1, Sodium Level 145, Potassium Level 4.2, Chloride Level 110H, Carbon Dioxide Level 31, Anion Gap 5, Blood Urea Nitrogen 11, Creatinine 0.6, Estimat Glomerular Filtration Rate > 60, Glucose Level 98, Calcium Level 9.0, Total Bilirubin 0.3, Aspartate Amino Transf (AST/SGOT) 13L, Alanine Aminotransferase ( ALT/SGPT) 12, Alkaline Phosphatase 53, Total Protein 6.2L, Albumin 3.2L, Globulin 3.0, Albumin/Globulin Ratio 1.1 Height (Feet): 5 Height (Inches): 5.00 Weight (Pounds): 100 Objective GENERAL: Alert, awake, and oriented. LUNGS: Decreased breath sounds bilaterally. HEART: S1 and S2 regular. ABDOMEN: Benign. EXTREMITIES: No clubbing. No edema. NEURO: No changes. Damon Jarvis Jun 15, 2019 13:26
[2019-06-15 16:00] VITALS: BP 135/80
--- NOTE | 2019-06-15 17:04 | Internal Med Progress Note ---
Subjective Date of Service: Jun 15, 2019 Physician Name VazquezObey Attending Physician Ish Arvizu MD Current Medications Medications (Trade) Dose Ordered Sig/David Route PRN Reason Start Time Stop Time Status Last Admin Dose Admin Bisacodyl (Dulcolax) 10 mg DAILYPRN PRN RECTAL Constipation 06/13/19 07:15 07/13/19 07:14 Chlordiazepoxide (Librium) 25 mg Q6H PRN ORAL withdrawl 06/13/19 13:15 06/20/19 06:59 06/15/19 03:53 Dextrose/ Electrolytes 1,000 ml @ 50 mls/hr Q20H IV 06/13/19 14:00 07/13/19 13:59 06/15/19 05:22 Gabapentin (Neurontin) 300 mg THREE TIMES A DAY ORAL 06/13/19 13:00 07/13/19 12:59 06/15/19 12:51 Heparin Sodium (Porcine) (Heparin 5000 units/ml) 5,000 units EVERY 12 HOURS SUBQ 06/13/19 09:00 07/28/19 08:59 Loperamide HCl (Imodium) 4 mg Q6HR PRN ORAL Diarrhea 06/13/19 01:00 07/13/19 00:59 Methadone HCl (Methadone HCl) 20 mg DAILY ORAL 06/14/19 09:00 06/21/19 08:59 06/15/19 08:28 Methocarbamol (Robaxin) 500 mg Q8H PRN ORAL muscle spasm 06/13/19 13:00 07/13/19 12:59 06/14/19 22:28 Mirtazapine (Remeron) 7.5 mg BEDTIME ORAL 06/13/19 21:00 07/13/19 20:59 06/14/19 20:16 Nicotine (Nicoderm) 1 patch Q24H TDERMAL 06/15/19 12:00 07/15/19 11:59 06/15/19 12:52 Ondansetron HCl (Zofran) 4 mg Q6H PRN IVP Nausea & Vomiting 06/13/19 07:00 07/13/19 06:59 06/15/19 03:53 Polyethylene Glycol (Miralax) 17 gm BEDTIME ORAL 06/13/19 21:00 07/13/19 20:59 06/14/19 20:16 Sucralfate (Carafate) 1 gm FOUR TIMES A DAY ORAL 06/13/19 18:00 07/13/19 17:59 06/15/19 12:51 Venlafaxine HCl (Effexor-XR) 150 mg DAILY ORAL 06/14/19 09:00 07/14/19 08:59 06/15/19 08:27 Allergies: Uncoded Allergies: IOODINE (Allergy, Unknown, 06/12/19) ROS Limited/Unobtainable: No Constitutional: Reports: no symptoms HEENT: Reports: no symptoms Cardiovascular: Reports: no symptoms Respiratory: Reports: no symptoms Gastrointestinal/Abdominal: Reports: no symptoms Genitourinary: Reports: no symptoms Neurologic/Psychiatric: Reports: no symptoms Subjective 39 YO F admitted with acetaminophen overdose. Cover for Int med-DR Arvizu Objective Last Vital Signs Date Time Temp Pulse Resp B/P (MAP) Pulse Ox O2 Delivery O2 Flow Rate FiO2 06/15/19 12:00 97.9 55 20 127/70 (89) 100 06/15/19 09:00 Room Air Laboratory Tests Test 06/15/19 07:10 White Blood Count 5.1 K/UL (4.8-10.8) Red Blood Count 4.41 M/UL (4.20-5.40) Hemoglobin 12.8 G/DL (12.0-16.0) Hematocrit 38.1 % (37.0-47.0) Mean Corpuscular Volume 86 FL (80-99) Mean Corpuscular Hemoglobin 29.0 PG (27.0-31.0) Mean Corpuscular Hemoglobin Concent 33.6 G/DL (32.0-36.0) Red Cell Distribution Width 12.1 % (11.6-14.8) Platelet Count 252 K/UL (150-450) Mean Platelet Volume 7.1 FL (6.5-10.1) Neutrophils (%) (Auto) 47.3 % (45.0-75.0) Lymphocytes (%) (Auto) 41.4 % (20.0-45.0) Monocytes (%) (Auto) 6.9 % (1.0-10.0) Eosinophils (%) (Auto) 3.3 % (0.0-3.0) H Basophils (%) (Auto) 1.1 % (0.0-2.0) Sodium Level 145 MMOL/L (136-145) Potassium Level 4.2 MMOL/L (3.5-5.1) Chloride Level 110 MMOL/L (98-107) H Carbon Dioxide Level 31 MMOL/L (21-32) Anion Gap 5 mmol/L (5-15) Blood Urea Nitrogen 11 mg/dL (7-18) Creatinine 0.6 MG/DL (0.55-1.30) Estimat Glomerular Filtration Rate > 60 mL/min (>60) Glucose Level 98 MG/DL (74-106) Calcium Level 9.0 MG/DL (8.5-10.1) Total Bilirubin 0.3 MG/DL (0.2-1.0) Aspartate Amino Transf (AST/SGOT) 13 U/L (15-37) L Alanine Aminotransferase (ALT/SGPT) 12 U/L (12-78) Alkaline Phosphatase 53 U/L (46-116) Total Protein 6.2 G/DL (6.4-8.2) L Albumin 3.2 G/DL (3.4-5.0) L Globulin 3.0 g/dL Albumin/Globulin Ratio 1.1 (1.0-2.7) Intake and Output 06/14/19 06/15/19 19:00 07:00 Intake Total 50 ml 2350 ml Balance 50 ml 2350 ml IV Total 50 ml 550 ml Other 1800 ml # Voids 3 Objective PHYSICAL EXAMINATION: GENERAL: The patient is awake, responsive, and in no acute distress. HEAD AND NECK: Pupils are equal and reactive to light. Extraocular movements intact. NECK: Supple. No JVD. LUNGS: Good air entry. No wheezing or rales. HEART: S1, S2. Regular rhythm. No murmur or gallops. ABDOMEN: Soft, nondistended. Tender on deep palpation. Diffuse abdominal tenderness. No rebound tenderness. No fluid shift. EXTREMITIES: No cyanosis, clubbing, or edema. NEUROLOGIC: Cranial nerves II through XII grossly intact. Motor is 5/5 in all extremities. Gait was not assessed due to the patient's status. RECTAL: Refused and deferred. GENITOURINARY: Refused and deferred. PSYCHIATRIC: Mood and affect is anxious. Assessment/Plan Assessment/Plan ASSESSMENT: 1. Polysubstance abuse, status post withdrawal. 2. Acetaminophen overdose. 3. Fibromyalgia. 4. Diverticulosis. 5. Rheumatoid arthritis. PLAN: 1. Admit the patient to medical floor. 2. Mucomyst titer as per protocol. 3. Dr. Montoya=Gastroenterology consultation. 4. Pain management=Obey Anglin MD Jun 15, 2019 17:04
--- NOTE | 2019-06-15 18:54 | General Progress Note ---
Assessment/Plan Assessment/Plan: Assessment - drug dependence - Tylenol OD Recommendations - pain control / drug rehab - D/C planning Subjective Allergies: Uncoded Allergies: IOODINE (Allergy, Unknown, 06/12/19) Subjective Feels OK no new symptoms Objective Last 24 Hour Vital Signs Date Time Temp Pulse Resp B/P (MAP) Pulse Ox O2 Delivery O2 Flow Rate FiO2 06/15/19 16:00 98.7 50 18 135/80 (98) 97 06/15/19 12:00 97.9 55 20 127/70 (89) 100 06/15/19 09:00 Room Air 06/15/19 08:00 98.2 72 18 122/65 (84) 100 06/15/19 04:00 96.9 70 18 120/74 (89) 95 06/15/19 00:00 98.3 63 18 110/72 (85) 97 06/14/19 21:00 Room Air 06/14/19 20:00 98.7 67 18 113/80 (91) 99 Intake and Output 06/14/19 06/15/19 19:00 07:00 Intake Total 50 ml 2350 ml Balance 50 ml 2350 ml IV Total 50 ml 550 ml Other 1800 ml # Voids 3 Laboratory Tests 06/15/19 07:10: White Blood Count 5.1, Red Blood Count 4.41, Hemoglobin 12.8, Hematocrit 38.1, Mean Corpuscular Volume 86, Mean Corpuscular Hemoglobin 29.0, Mean Corpuscular Hemoglobin Concent 33.6, Red Cell Distribution Width 12.1, Platelet Count 252, Mean Platelet Volume 7.1, Neutrophils (%) (Auto) 47.3, Lymphocytes (%) (Auto) 41.4, Monocytes (%) (Auto) 6.9, Eosinophils (%) (Auto) 3.3H, Basophils (%) (Auto ) 1.1, Sodium Level 145, Potassium Level 4.2, Chloride Level 110H, Carbon Dioxide Level 31, Anion Gap 5, Blood Urea Nitrogen 11, Creatinine 0.6, Estimat Glomerular Filtration Rate > 60, Glucose Level 98, Calcium Level 9.0, Total Bilirubin 0.3, Aspartate Amino Transf (AST/SGOT) 13L, Alanine Aminotransferase ( ALT/SGPT) 12, Alkaline Phosphatase 53, Total Protein 6.2L, Albumin 3.2L, Globulin 3.0, Albumin/Globulin Ratio 1.1 Height (Feet): 5 Height (Inches): 5.00 Weight (Pounds): 100 Objective WDWN NCAT supple CTA RR Abd soft no edema Mary Hsieh MD Jun 15, 2019 18:54
--- NOTE | 2019-06-15 19:33 | NUR ---
HAND-OFF: Report given to AMANDA Marcelino. Endorsed discharge.
--- NOTE | 2019-06-15 20:30 | NUR ---
NURSE NOTES: Patient is awake, alert x 4. Ambulates, no complained of pain or discomfort. Discharge instruction was given. All belongings noted with patient. IV site removed, id band removed. Flu shot given, paper work given, Prescription noted with patient. Checkered cab called and was picked up.
--- NOTE | 2019-06-16 14:24 | Discharge Summary ---
Discharge Summary Discharge Summary _ DATE OF ADMISSION: 06/13/2019 DATE OF DISCHARGE: 06/16/2019 DISCHARGED BY: REASON FOR ADMISSION: 39 years old female with past medical history of cocaine and opiate abuse, fibromyalgia, diverticulosis, rheumatoid arthritis, presented for evaluation due to body pain and withdrawal symptoms. Patient apparently was at [facility] trying to get out of opiate and methadone. Patient was on tapering dose. Patient signed out since she was not satisfied with care there. Patient complained of diffuse body pain , associated with diarrhea, nausea and vomiting. No fever or chills. No chest pain. No back pain. Patient believed that she was withdrawing, as she had similar symptoms in the past. Patient drank a bottle of NyQuil to try her to sleep. Patient denied suicidal attempt , she was just looking for relief from pain and to help with sleep. Upon evaluation vital signs were stable. Laboratory work-up revealed no leukocytosis , stable hemoglobin, hematocrit and platelet count. Potassium 3.2. Stable renal parameters and other electrolytes. Glucose 89. AST 15 ALT 15. Serum alcohol level less than 3 . Tylenol level 131. Salicylate 1.9. Urinalysis revealed no evidence of urinary tract infection. Urine toxicology screen was positive for PCP. EKG revealed sinus bradycardia with no ischemic changes. ER doctor discussed the case with the poison control , who recommended administration of Mucomyst. Initial dose was given in the ED . Patient subsequently admitted for acute Tylenol ingestion/overdose for further monitoring. CONSULTANTS: GI specialist Dr. Hsieh pain specialist Dr. Carranza psychiatrist [facility] COURSE: Patient admitted to medical surgical floor. Patient started on Mucomyst as per protocol. Tylenol levels were closely monitored . Patient was receiving IV fluids. Pain management was addressed as per pain specialist recommendation. Antiemetic were on board as needed. Supportive care provided. LFT remained stable. Psychiatrist seen and evaluated patient Per psychiatrist patient has polysubstance dependence and major depressive disorder. atient started on Effexor. Patient provided with reality orientation. Tylenol level went down to less than 2 upon discharge. Patient was recommended to return to drug rehab program. Patient clinically stabilized and was ready for discharge FINAL DIAGNOSES: Polysubstance abuse status post withdrawal Acetaminophen overdose Polysubstance dependence Major depressive disorder Fibromyalgia Diverticulosis Rheumatoid arthritis DISCHARGE MEDICATIONS: See Medication Reconciliation list. DISCHARGE INSTRUCTIONS: Patient was discharged home. Patient was recommended to return to drug rehab program. I have been assigned to dictate discharge summary for this account. I was not involved in the patient's management. Alysia Myers NP Jun 16, 2019 14:24
== END 2019-06-15 20:20 | disposition home or self-care (01) | DRG 812 ==
LOC: EDBD 22:50 → EMR 23:15 → 4E 06-13 00:42 → EDBEDREQ 06-13 00:58
DX: T39.1X1A Poisoning by 4-Aminophenol derivatives, accidental (unintentional), initial encounter (principal); F19.239 Other psychoactive substance dependence with withdrawal, unspecified; Y92.009 Unspecified place in unspecified non-institutional (private) residence as the place of occurrence of the external cause; Z88.8 Allergy status to other drugs, medicaments and biological substances; F17.200 Nicotine dependence, unspecified, uncomplicated; M79.7 Fibromyalgia; K57.90 Diverticulosis of intestine, part unspecified, without perforation or abscess without bleeding; Z23 Encounter for immunization; M06.9 Rheumatoid arthritis, unspecified; F32.9 Major depressive disorder, single episode, unspecified; R10.9 Unspecified abdominal pain; F60.3 Borderline personality disorder
CPT/HCPCS: 36415; 80048; 80053; 80076; 80307; 81003; 81025; 83735; 84100; 85025; 85610; 90689; 93005; 96361; 96374; 96375; 99291; G0480; J2405; J7030

== ENCOUNTER 2019-06-28 01:33 | Emergency (ER) | payer OTHER ==
[~2019-06-28] VITALS: Ht 165.1 cm; Wt 47.6 kg
[~2019-06-28 01:33] MED LIST: buspirone; gabapentin; methadone; venlafaxine; xanax
[2019-06-28 01:40] VITALS: BP 122/82
--- NOTE | 2019-06-28 01:40 | NUR ---
ED Nurse Note: Pt brought into ED by RADU [id number] for c/o n/v x1 day. Pt also reports cough, body aches and fever but no fever upon ED triage. Pt is aaox4, breathing is normal and unlabored. No cardiac distress. Pt appears anxious at this time. Pt connected to ekg monitor, will continue to monitor.
[2019-06-28] MEDS ORDERED: Ketorolac 30mg Inj IV ONE (01:45)
--- NOTE | 2019-06-28 01:46 | Emergency Room Report ---
History of Present Illness General Chief Complaint: Nausea Source: Patient Present Illness HPI Patient is a 39-year-old female who presents after increased nausea and vomiting. Recently had come off of methadone. Prior history of substance abuse. Reports having increased shakiness as well as nausea and vomiting. Reports having generalized abdominal cramping. Will not state when she last used methadone. Had recent hospitalization. Reports having some prior history of smoking cigarettes and states that she has recently been trying to quit. Denies any weakness. Allergies: Coded Allergies: IODINE (Verified Allergy, Unknown, 06/28/19) Uncoded Allergies: IOODINE (Allergy, Unknown, 06/12/19) COVID-19 Screening Contact w/high risk pt: No Recent Travel to affected area: No Experienced COVID-19 symptoms?: No Patient History Past Medical History: see triage record Last Menstrual Period: 06/27/19 Reviewed Nursing Documentation: PMH: Agreed; PSxH: Agreed Nursing Documentation-PMH Past Medical History: No History, Except For Hx Cancer: No Hx Gastrointestinal Problems: No Hx Neurological Problems: No Review of Systems All Other Systems: negative except mentioned in HPI Physical Exam Vital Signs Date Time Temp Pulse Resp B/P (MAP) Pulse Ox O2 Delivery O2 Flow Rate FiO2 06/28/19 01:35 98.1 62 16 122/82 (95) 98 Room Air Sp02 EP Interpretation: reviewed, normal General Appearance: normal inspection, well appearing, alert, GCS 15 Head: atraumatic ENT: normal ENT inspection, hearing grossly normal, normal voice Neck: normal inspection, full range of motion, supple, no bony tend Respiratory: normal inspection, lungs clear, normal breath sounds, no respiratory distress, no retraction, no wheezing Cardiovascular #1: regular rate, rhythm, no edema Gastrointestinal: normal inspection, normal bowel sounds, non tender, soft, no guarding, no hernia Genitourinary: no CVA tenderness Musculoskeletal: normal inspection, back normal, normal range of motion Neurologic: alert, motor strength/tone normal, car deliverer III-XII nml as tested, responsive, speech normal, normal inspection Psychiatric: normal inspection, judgement/insight normal, mood/affect normal Medical Decision Making Diagnostic Impression: Primary Impression: OPIOID DEPENDENCE WITH WITHDRAWAL ER Course Patient presented for abdominal pain. Differential diagnoses included ischemic bowel, appendicitis, perforated viscus, abdominal aortic aneurysm, inferior myocardial infarction, viral gastroenteritis among others.Because patient's complexity laboratory testing ordered. Laboratory testing showed laboratory testing was unremarkable.. Electrolytes were normal. Lipase was normal White blood count was normal Patient was given methadone in the emergency department. She is also given IV fluids as well as antiemetics. Patient appears to be stable for follow-up with her methadone clinic.Advised to return if worse. This medical record is generated with [employer] ironworker foreman software. There may be some ironworker foreman discrepancies related to use of this software Labs Test 06/28/19 01:50 06/28/19 03:50 White Blood Count 10.2 K/UL (4.8-10.8) Red Blood Count 4.94 M/UL (4.20-5.40) Hemoglobin 14.4 G/DL (12.0-16.0) Hematocrit 42.5 % (37.0-47.0) Mean Corpuscular Volume 86 FL (80-99) Mean Corpuscular Hemoglobin 29.2 PG (27.0-31.0) Mean Corpuscular Hemoglobin Concent 33.9 G/DL (32.0-36.0) Red Cell Distribution Width 13.3 % (11.6-14.8) Platelet Count 440 K/UL (150-450) Mean Platelet Volume 6.0 FL (6.5-10.1) Neutrophils (%) (Auto) 71.6 % (45.0-75.0) Lymphocytes (%) (Auto) 20.8 % (20.0-45.0) Monocytes (%) (Auto) 6.6 % (1.0-10.0) Eosinophils (%) (Auto) 0.3 % (0.0-3.0) Basophils (%) (Auto) 0.7 % (0.0-2.0) Sodium Level 136 MMOL/L (136-145) Potassium Level 3.8 MMOL/L (3.5-5.1) Chloride Level 100 MMOL/L (98-107) Carbon Dioxide Level 28 MMOL/L (21-32) Anion Gap 8 mmol/L (5-15) Blood Urea Nitrogen 10 mg/dL (7-18) Creatinine 0.6 MG/DL (0.55-1.30) Estimat Glomerular Filtration Rate > 60 mL/min (>60) Glucose Level 110 MG/DL (74-106) Calcium Level 9.2 MG/DL (8.5-10.1) Total Bilirubin 0.9 MG/DL (0.2-1.0) Aspartate Amino Transf (AST/SGOT) 23 U/L (15-37) Alanine Aminotransferase (ALT/SGPT) 17 U/L (12-78) Alkaline Phosphatase 71 U/L (46-116) Total Protein 8.5 G/DL (6.4-8.2) Albumin 4.8 G/DL (3.4-5.0) Globulin 3.7 g/dL Albumin/Globulin Ratio 1.3 (1.0-2.7) Acetaminophen Level < 2 MCG/ML (10-30) Urine Color Yellow Urine Appearance Clear Urine pH 6 (4.5-8.0) Urine Specific [place] 1.015 (1.005-1.035) Urine Protein Negative (NEGATIVE) Urine Glucose (UA) Negative (NEGATIVE) Urine Ketones 1+ (NEGATIVE) Urine Blood 1+ (NEGATIVE) Urine Nitrite Negative (NEGATIVE) Urine Bilirubin Negative (NEGATIVE) Urine Urobilinogen Normal MG/DL (0.0-1.0) Urine Leukocyte Esterase 1+ (NEGATIVE) Urine RBC 0-2 /HPF (0 - 2) Urine WBC 0-2 /HPF (0 - 2) Urine Squamous Epithelial Cells Few /LPF (NONE/OCC) Urine Bacteria Occasional /HPF (NONE) Urine HCG, Qualitative Negative (NEGATIVE) Last Vital Signs Date Time Temp Pulse Resp B/P (MAP) Pulse Ox O2 Delivery O2 Flow Rate FiO2 06/28/19 01:35 98.1 62 16 122/82 (95) 98 Room Air Status: improved Disposition: HOME, SELF-CARE Condition: Stable Scripts Dicyclomine Hcl* (DICYCLOMINE HCL*) 10 Mg Capsule 10 MG ORAL QID, #20 CAP Prov: Marcell Gomez MD 06/28/19 Marcell Gomez MD Jun 28, 2019 01:46
--- NOTE | 2019-06-28 01:50 | NUR ---
ED Nurse Note: Pt states she took 2 advil tonight, no other medications or drugs.
[2019-06-28 02:01] LABS: BASOPHILS % (AUTO) 0.7 % (0.0-2.0); EOSINOPHILS % (AUTO) 0.3 % (0.0-3.0); HEMATOCRIT 42.5 % (37.0-47.0); HEMOGLOBIN 14.4 G/DL (12.0-16.0); LYMPHOCYTES % (AUTO) 20.8 % (20.0-45.0); MEAN CORPUSCULAR VOLUME 86 FL (80-99); MONOCYTES % (AUTO) 6.6 % (1.0-10.0); NEUTROPHILS % (AUTO) 71.6 % (45.0-75.0); PLATELET COUNT 440 K/UL (150-450); RED BLOOD COUNT 4.94 M/UL (4.20-5.40); RED CELL DISTRIBUTION WIDTH 13.3 % (11.6-14.8); WHITE BLOOD COUNT 10.2 K/UL (4.8-10.8)
[2019-06-28 02:12] LABS: ANION GAP 8 mmol/L (5-15); BLOOD UREA NITROGEN 10 mg/dL (7-18); CALCIUM 9.2 MG/DL (8.5-10.1); CARBON DIOXIDE 28 MMOL/L (21-32); CHLORIDE 100 MMOL/L (98-107); CREATININE 0.6 MG/DL (0.55-1.30); POTASSIUM 3.8 MMOL/L (3.5-5.1); SODIUM 136 MMOL/L (136-145)
[2019-06-28 02:17] LABS: ALANINE AMINOTRANSFERASE 17 U/L (12-78); ALBUMIN 4.8 G/DL (3.4-5.0); ALBUMIN/GLOBULIN RATIO 1.3 (1.0-2.7); ALKALINE PHOSPHATASE 71 U/L (46-116); ASPARTATE AMINO TRANSFERASE 23 U/L (15-37); BILIRUBIN,TOTAL 0.9 MG/DL (0.2-1.0)
--- NOTE | 2019-06-28 02:55 | NUR ---
ED Nurse Note: Pt is c/o methadone withdrawl and requesting to speak to ERMD. ERMD bedside. Will carry out medication order.
[2019-06-28] MEDS ORDERED: Dicyclomine HCl 10mg/5ml oral soln ORAL ONE (03:15)
[2019-06-28 03:45] VITALS: BP 118/75
--- NOTE | 2019-06-28 03:50 | NUR ---
ED Nurse Note: Pt able to ambulate with steady gait to restroom. Urine specimen collected and sent to lab.
[2019-06-28 03:58] LABS: APPEARANCE,URINE CLEAR; BILIRUBIN, URINE NEGATIVE (NEGATIVE); GLUCOSE, URINE (UA) NEGATIVE (NEGATIVE); KETONES,URINE 1+ (NEGATIVE); LEUKOCYTE ESTERASE ,URINE 1+ (NEGATIVE); NITRITE,URINE NEGATIVE (NEGATIVE); PH,URINE 6 (4.5-8.0); PROTEIN,URINE NEGATIVE (NEGATIVE); UROBILINOGEN,URINE NORMAL MG/DL (0.0-1.0)
[2019-06-28 04:01] LABS: COLOR,URINE YELLOW
[2019-06-28] MEDS ORDERED: DICYCLOMINE HCL10 MG ORAL (04:22)
--- NOTE | 2019-06-28 04:25 | NUR ---
ED Nurse Note: Pt provided with nourishment and warm blanket. No acute distress noted. Will continue to monitor.
[2019-06-28 06:00] VITALS: BP 122/89
--- NOTE | 2019-06-28 06:00 | NUR ---
ER DISCHARGE NOTE: Patient is cleared to be discharged per ERMD, pt is aox4, on room air, with stable vital signs. pt was given dc and prescription instructions, pt was able to verbalize understanding, pt id band and iv site removed without complications. pt is able to ambulate with steady gait. pt took all belongings.
== END 2019-06-28 06:00 | disposition home or self-care (01) ==
LOC: EDBD 01:33 → EMR 01:48
DX: F11.23 Opioid dependence with withdrawal (principal); R11.2 Nausea with vomiting, unspecified; Z91.041 Radiographic dye allergy status; Z87.891 Personal history of nicotine dependence
CPT/HCPCS: 36415; 80053; 81001; 81025; 85025; 96361; 96374; 96375; G0480; J1885; J2405; J7030; Z7502; 99284

== ENCOUNTER 2019-06-30 21:41 | Emergency (ER) | payer OTHER ==
[~2019-06-30] VITALS: Ht 165.1 cm; Wt 47.6 kg
[~2019-06-30 21:41] MED LIST changes: +DICYCLOMINE HCL10 MG ORAL
--- NOTE | 2019-06-30 22:02 | Emergency Room Report ---
History of Present Illness General Chief Complaint: Medication Refill Source: Patient Present Illness HPI Is a 39-year-old Maltese female with a history of polysubstance abuse. She presents with chief complaint of opiate withdrawals. She is currently on methadone and has been off of it for the last few days. She is out of her medication. She was in a rehab facility initially but she is left because she did not like the way she was treated. She states she is going to another rehab facility in the morning. She is requesting methadone for her body pain. She says she has nausea vomiting and diarrhea. She is better now. She went to another hospital yesterday and [facility] today. She said they only gave her Tylenol and Motrin this morning. She complained of body pain of 10 out of 10. She is not vomiting or diarrhea here. Denies any fever chills but denies any trauma. Denies any other drug abuse at this moment in time. Allergies: Coded Allergies: IODINE (Verified Allergy, Unknown, 06/28/19) Uncoded Allergies: IOODINE (Allergy, Unknown, 06/12/19) COVID-19 Screening Contact w/high risk pt: No Recent Travel to affected area: No Experienced COVID-19 symptoms?: No Patient History Past Medical History: see triage record, old chart reviewed Past Surgical History: none Pertinent Family History: none Social History: Reports: drug use Last Menstrual Period: 120 Now: No Immunizations: other Reviewed Nursing Documentation: PMH: Agreed; PSxH: Agreed Nursing Documentation-PMH Past Medical History: No History, Except For Hx Cancer: No Hx Gastrointestinal Problems: No Hx Neurological Problems: No Review of Systems Eye: Denies: eye pain, blurred vision ENT: Denies: ear pain, nose congestion, throat swelling Respiratory: Denies: cough, shortness of breath Cardiovascular: Denies: chest pain, palpitations Gastrointestinal: Denies: abdominal pain, diarrhea, nausea, vomiting Musculoskeletal: Reports: joint pain, muscle pain; Denies: back pain Skin: Denies: rash Neurological: Denies: headache, numbness Endocrine: Denies: increased thirst, increased urine Hematologic/Lymphatic: Denies: easy bruising All Other Systems: negative except mentioned in HPI Physical Exam Vital Signs Date Time Temp Pulse Resp B/P (MAP) Pulse Ox O2 Delivery O2 Flow Rate FiO2 06/30/19 21:45 98.4 71 16 125/84 (98) 98 Room Air Vitals normal Sp02 EP Interpretation: reviewed, normal General Appearance: well appearing, no apparent distress, alert Head: normocephalic, atraumatic Eyes: bilateral eye PERRL, bilateral eye EOMI ENT: hearing grossly normal, normal pharynx Neck: full range of motion, supple, no meningismus Respiratory: chest non-tender, lungs clear, normal breath sounds Cardiovascular #1: regular rate, rhythm, no murmur Gastrointestinal: normal bowel sounds, non tender, no mass, no organomegaly, no bruit, non-distended Musculoskeletal: back normal, normal range of motion, gait/station normal Psychiatric: mood/affect normal Medical Decision Making Diagnostic Impression: Primary Impression: Opiate withdrawal ER Course Patient presents with symptoms of opiate withdrawal. She is not tachycardic or hypertensive however. No evidence of any nausea vomiting or diarrhea here. I ordered a dose of methadone here. Will discharge home afterward. Last Vital Signs Date Time Temp Pulse Resp B/P (MAP) Pulse Ox O2 Delivery O2 Flow Rate FiO2 06/30/19 21:45 98.4 71 16 125/84 (98) 98 Room Air Status: improved Disposition: HOME, SELF-CARE Condition: Stable Additional Instructions: Follow-up with rehab tomorrow. Return if symptoms worsen. Perry Palma MD Jun 30, 2019 22:02
[2019-06-30 22:20] VITALS: BP 125/84
== END 2019-06-30 22:20 | disposition home or self-care (01) ==
LOC: EMR 22:00
DX: F11.23 Opioid dependence with withdrawal (principal); Z91.041 Radiographic dye allergy status; R11.2 Nausea with vomiting, unspecified
CPT/HCPCS: 99282

== ENCOUNTER 2019-07-01 18:31 | Emergency (ER) | payer OTHER ==
[~2019-07-01] VITALS: Ht 165.1 cm; Wt 47.6 kg
--- NOTE | 2019-07-01 18:53 | NUR ---
ED Nurse Note: Pt walked in from home due to SOB, bodyaches and shakiness started this morning. per pt, she has an appointment with pcp tomorrow but wants pain medication today. pt aao x4 and ambulatory. not coughing and no labored breathing or SOB observed at this time. calm and cooperative. skin clean and intact.
[2019-07-01 18:54] VITALS: BP 123/88
--- NOTE | 2019-07-01 19:01 | NUR ---
ED Nurse Note: KEVEND spoke to pt and pt got up and eloped. attempted to speak to pt but pt refused to answer questions and walked away. was able to remove wrist band but unable to obtain last set of vital signs. pt ambulated with steady gait and left with all belongings. MARINA made aware.
--- NOTE | 2019-07-01 19:02 | Emergency Room Report ---
History of Present Illness General Chief Complaint: Pain Source: Patient Present Illness HPI Patient presents with complaints that she is withdrawing from methadone Patient has had multiple visits here starting in early May had admission at that time and has had several ER visits since then Patient reports feeling nauseated Denies any chest pain denies any headache Denies any fevers or chills Allergies: Coded Allergies: IODINE (Verified Allergy, Unknown, 06/28/19) Uncoded Allergies: IOODINE (Allergy, Unknown, 06/12/19) COVID-19 Screening Contact w/high risk pt: No Recent Travel to affected area: No Experienced COVID-19 symptoms?: Yes COVID-19 symptoms experienced: Shortness of Breath Patient History Past Medical History: see triage record Last Menstrual Period: currently onher period Now: No Reviewed Nursing Documentation: PMH: Agreed; PSxH: Agreed Nursing Documentation-PMH Past Medical History: No History, Except For Hx Cancer: No Hx Gastrointestinal Problems: No Hx Neurological Problems: No Review of Systems All Other Systems: negative except mentioned in HPI Physical Exam Vital Signs Date Time Temp Pulse Resp B/P (MAP) Pulse Ox O2 Delivery O2 Flow Rate FiO2 07/01/19 18:42 98.8 64 16 123/88 (100) 96 07/01/19 18:54 Room Air Sp02 EP Interpretation: reviewed, normal General Appearance: well appearing, no apparent distress Head: normocephalic, atraumatic Eyes: bilateral eye PERRL, bilateral eye EOMI ENT: EOM grossly intact Neck: full range of motion Respiratory: no respiratory distress, no retraction, no accessory muscle use Cardiovascular #1: regular rate, rhythm Gastrointestinal: non tender, soft Musculoskeletal: normal inspection Neurologic: alert, oriented x3 Psychiatric: normal inspection Skin: no rash Medical Decision Making Diagnostic Impression: Primary Impression: Opiate dependence Additional Impression: Palpitation ER Course Patient presents with request of methadone and reporting that she is having opiate withdrawal Patient has had multiple visits to the emergency room has been to other emergency rooms patient initially left her Facility as she was not liking the way she was treated on the emergency evaluation patient has normal sinus rhythm skin is appropriate no signs of any diaphoresis or other signs of acute withdrawal After initial discussion, and attempts of understanding the patients situation better patient stood up and eloped from the emergency room Last Vital Signs Date Time Temp Pulse Resp B/P (MAP) Pulse Ox O2 Delivery O2 Flow Rate FiO2 07/01/19 18:54 98.8 81 16 123/88 96 Room Air Status: unchanged Disposition: HOME, SELF-CARE Condition: Stable Additional Instructions: Please follow closely with your methadone clinic Gagandeep Hook DO Jul 01, 2019 19:02
== END 2019-07-01 19:00 | disposition home or self-care (01) ==
LOC: EMR 19:00
DX: F11.20 Opioid dependence, uncomplicated (principal); R06.02 Shortness of breath; R00.2 Palpitations; Z91.041 Radiographic dye allergy status
CPT/HCPCS: 99281